=== PATIENT | female | born 1950 | race African-American/Black ===

== ENCOUNTER 2022-09-06 10:28 | Emergency (ER) | payer MEDICARE, OTHER ==
[~2022-09-06] VITALS: Ht 157.5 cm; Wt 66.8 kg
[2022-09-06] MEDS ORDERED: CRESTOR10 MG PO (10:44)
[2022-09-06] MEDS ORDERED: ADVAIR 100-501 EACH INH (10:44)
[2022-09-06] MEDS ORDERED: DIOVAN40 MG (10:44)
[2022-09-06] MEDS ORDERED: ERYTHROMYCIN (OPTH) 3.5 GM OINT OP ONE ×2 (11:00→11:05)
[2022-09-06] MEDS ORDERED: TETRACAINE HCL 0.5% OPTH SOLN 4 ML BTL OP ONE (11:00)
[2022-09-06] MEDS ORDERED: FLUORESCEIN SOD(OPTH) 1 MG STRP OP ONE (11:00)
== END 2022-09-06 10:56 | disposition home or self-care (01) ==
LOC: FSED 10:33
DX: S05.01XA Injury of conjunctiva and corneal abrasion without foreign body, right eye, initial encounter (principal); Y93.H2 Activity, gardening and landscaping; Y92.89 Other specified places as the place of occurrence of the external cause
CPT/HCPCS: 99284

== ENCOUNTER 2023-01-09 10:56 | Emergency (ER) | payer MEDICARE, OTHER ==
[~2023-01-09] VITALS: Ht 157.5 cm; Wt 66.7 kg
[~2023-01-09 10:56] MED LIST: ADVAIR 100-501 EACH INH; CRESTOR10 MG PO; DIOVAN40 MG
[2023-01-09 13:47] VITALS: BP 134/71
== END 2023-01-09 13:44 | disposition home or self-care (01) ==
LOC: FSED 12:17
DX: M25.561 Pain in right knee (principal); X50.1XXA Overexertion from prolonged static or awkward postures, initial encounter; Y92.89 Other specified places as the place of occurrence of the external cause; I10 Essential (primary) hypertension; E78.5 Hyperlipidemia, unspecified; J45.909 Unspecified asthma, uncomplicated
CPT/HCPCS: 99283

== ENCOUNTER → 2025-05-22 | Outpatient (REF) | payer MEDICARE | LOC: EDSTATUS 10:00 → RESP 10:08 | DX: J40 Bronchitis, not specified as acute or chronic (principal); J44.9 Chronic obstructive pulmonary disease, unspecified; R91.8 Other nonspecific abnormal finding of lung field; M40.209 Unspecified kyphosis, site unspecified; J43.9 Emphysema, unspecified; F17.200 Nicotine dependence, unspecified, uncomplicated | CPT/HCPCS: 94060; 94727; 94729 ==

== ENCOUNTER → 2025-05-22 | Outpatient (REF) | payer MEDICARE | LOC: CT 09:53 | PROVIDERS: ATTEND Nurse Practitioner Family | DX: J40 Bronchitis, not specified as acute or chronic (principal); J44.9 Chronic obstructive pulmonary disease, unspecified; R91.8 Other nonspecific abnormal finding of lung field; M40.209 Unspecified kyphosis, site unspecified; J43.9 Emphysema, unspecified; F17.200 Nicotine dependence, unspecified, uncomplicated | CPT/HCPCS: 71250 ==